=== PATIENT | female | born 1995 | race Two or more races ===

== ENCOUNTER 2019-12-01 11:59 | Emergency (ER) | payer OTHER, SELFPAY ==
[~2019-12-01] VITALS: Ht 160 cm; Wt 77.6 kg
[2019-12-01 12:09] VITALS: Ht 160 cm; Wt 77.6 kg
[2019-12-01 13:41] VITALS: BP 142/86
== END 2019-12-01 13:41 | disposition home or self-care (01) ==
LOC: ED 11:59
DX: U07.1 COVID-19 (principal); B34.9 Viral infection, unspecified; Z88.1 Allergy status to other antibiotic agents
CPT/HCPCS: U0003-CS